=== PATIENT | female | born 1955 | race Caucasian/White ===

== ENCOUNTER 2017-11-11 01:50 | Observation (INO) | payer OTHER ==
[~2017-11-11] VITALS: Ht 157.5 cm; Wt 80.7 kg
[2017-11-11 02:24] LABS: BASO # 0.1 x10^3/uL (0.0-0.2); BASO % 1 % (0-3); EOS # 0.2 x10^3/uL (0.0-0.7); EOS % 2 % (0-3); HEMATOCRIT 40.5 % (36.0-47.0); HEMOGLOBIN 13.9 g/dL (12.0-15.5); LYMPH % 27 % (24-48); MEAN CORPUSCULAR HEMOGLOBIN 30 pg (25-35); MEAN CORPUSCULAR HGB CONC 34 g/dL (31-37); MEAN CORPUSCULAR VOLUME 88 fL (79-100); MONO # 0.7 x10^3/uL (0.0-1.1); MONO % 10 % (0-9); NEUT # 4.4 x10^3uL (1.8-7.7); NEUT % 60 % (31-73); PLATELET COUNT 229 x10^3/uL (140-400); RED BLOOD COUNT 4.59 x10^6/uL (3.50-5.40); WHITE BLOOD COUNT 7.4 x10^3/uL (4.0-11.0)
--- NOTE | 2017-11-11 02:28 | EKG ---
[facility] [address] [place] [address] Test Date: 2017-11-11 Test Time: 02:01:56 Pat Name: TOMEKA RAMSAY Department: Room: Gender: F [employer]: : 1955 Requested By: YOANNA CLEARY Order Number: [id number] Reading MD: Carlos Wheeler MD Measurements Intervals Ada Rate: 70 P: 50 UT: 174 QRS: 56 QRSD: 94 T: 81 QT: 400 QTc: 435 Interpretive Statements SINUS RHYTHM Electronically Signed On 11-11-2017 12:50:34 CDT by Carlos Wheeler MD
[2017-11-11] MEDS ORDERED: fentaNYL PF VIAL 100 MCG/2 ML VIAL IV ONE (02:30)
[2017-11-11] MEDS ORDERED: ASPIRIN CHEWABLE 81 MG TABLET. PO ONE (02:30)
--- NOTE | 2017-11-11 02:48 | PHYS DOC ---
Past Medical History Past Medical History: Other Additional Past Medical Histor: atrial tachycardia, anxiety Alcohol Use: None Drug Use: None Adult General Chief Complaint Chief Complaint: CHEST PAIN HPI HPI Patient is a 61 year old female with past medical history of atrial tachycardia , hiatal hernia, anxiety, hyperlipidemia who presents with 3 hours of chest pain. The patient notes she was watching television at home when she had the acute onset of chest pain. The patient notes that she has radiation of the pain to her upper thoracic region. The patient notes that she initially tried to ignore this pain and get ready for bed. The patient notes that she did fall asleep for a short amount of time when she was woken up from her sleep due to pain with diaphoresis and nausea. Patient denies any shortness of breath or headache. Patient notes she has never had any pain like this in the past. Review of Systems Review of Systems Constitutional: Denies fever or chills [] Eyes: Denies change in visual acuity, redness, or eye pain [] HENT: Denies nasal congestion or sore throat [] Respiratory: Denies cough or shortness of breath [] Cardiovascular: Notes chest pain denies palpitations[] GI: Denies abdominal pain, vomiting, bloody stools or diarrhea [] : Denies dysuria or hematuria [] Musculoskeletal: Notes back pain, denies joint pain [] Integument: Denies rash or skin lesions [] Neurologic: Denies headache, focal weakness or sensory changes [] Complete systems were reviewed and found to be within normal limits, except as documented in this note. Current Medications Current Medications Current Medications Medications (Trade) Dose Ordered Sig/[facility] Start Time Stop Time Status Last Admin Dose Admin Aspirin (Children'S Aspirin) 324 mg 1X ONCE 11/11/17 02:30 11/11/17 02:31 DC 11/11/17 03:05 324 MG Fentanyl Citrate (Fentanyl 2ml Vial) 50 mcg 1X ONCE 11/11/17 02:30 11/11/17 02:31 DC 11/11/17 03:08 50 MCG Allergies Allergies Allergies Coded Allergies Type Severity Reaction Last Updated Verified Estrogens Allergy Intermediate 11/11/17 Yes Penicillins Allergy Intermediate 11/11/17 Yes Tetracyclines Allergy Intermediate 11/11/17 Yes Physical Exam Physical Exam Constitutional: Well developed, well nourished, no acute distress, non-toxic appearance. [] HENT: Normocephalic, atraumatic,oropharynx moist, no oral exudates, nose normal. [] Eyes: PERRL, EOMI, conjunctiva normal, no discharge. [] Neck: Normal range of motion, no tenderness, supple, no meningismus. [] Cardiovascular:Heart rate regular rhythm, no murmur [] Lungs & Thorax: Bilateral breath sounds clear to auscultation [] Abdomen: Bowel sounds normal, soft, no tenderness. [] Skin: Warm, dry, no erythema, no rash. [] Back: No tenderness, no CVA tenderness. [] Extremities: No tenderness, normal peripheral pulses, ROM intact, no edema. [] Neurologic: Alert and oriented X 3, normal motor function, normal sensory function, no focal deficits noted. [] Psychologic: Affect normal, judgement normal, mood normal. [] Current Patient Data Vital Signs Vital Signs Date Time Temp Pulse Resp B/P (MAP) Pulse Ox O2 Delivery O2 Flow Rate FiO2 11/11/17 03:08 97 Room Air 11/11/17 03:00 72 18 144/72 (96) 11/11/17 02:11 97.4 97.4 Lab Values Laboratory Tests Test 11/11/17 02:04 White Blood Count 7.4 x10^3/uL (4.0-11.0) Red Blood Count 4.59 x10^6/uL (3.50-5.40) Hemoglobin 13.9 g/dL (12.0-15.5) Hematocrit 40.5 % (36.0-47.0) Mean Corpuscular Volume 88 fL (79-100) Mean Corpuscular Hemoglobin 30 pg (25-35) Mean Corpuscular Hemoglobin Concent 34 g/dL (31-37) Red Cell Distribution Width 13.0 % (11.5-14.5) Platelet Count 229 x10^3/uL (140-400) Neutrophils (%) (Auto) 60 % (31-73) Lymphocytes (%) (Auto) 27 % (24-48) Monocytes (%) (Auto) 10 % (0-9) H Eosinophils (%) (Auto) 2 % (0-3) Basophils (%) (Auto) 1 % (0-3) Neutrophils # (Auto) 4.4 x10^3uL (1.8-7.7) Lymphocytes # (Auto) 2.0 x10^3/uL (1.0-4.8) Monocytes # (Auto) 0.7 x10^3/uL (0.0-1.1) Eosinophils # (Auto) 0.2 x10^3/uL (0.0-0.7) Basophils # (Auto) 0.1 x10^3/uL (0.0-0.2) Sodium Level 140 mmol/L (136-145) Potassium Level 3.9 mmol/L (3.5-5.1) Chloride Level 104 mmol/L (98-107) Carbon Dioxide Level 26 mmol/L (21-32) Anion Gap 10 (6-14) Blood Urea Nitrogen 15 mg/dL (7-20) Creatinine 0.7 mg/dL (0.6-1.0) Estimated GFR (Cockcroft-Gault) 84.8 BUN/Creatinine Ratio 21 (6-20) H Glucose Level 142 mg/dL (70-99) H Calcium Level 9.3 mg/dL (8.5-10.1) Magnesium Level 2.1 mg/dL (1.8-2.4) Total Bilirubin 0.2 mg/dL (0.2-1.0) Aspartate Amino Transferase (AST) 31 U/L (15-37) Alanine Aminotransferase (ALT) 41 U/L (14-59) Alkaline Phosphatase 72 U/L (46-116) Troponin I Quantitative < 0.017 ng/mL (0.000-0.055) Total Protein 6.9 g/dL (6.4-8.2) Albumin 4.0 g/dL (3.4-5.0) Albumin/Globulin Ratio 1.4 (1.0-1.7) Triglycerides Level 184 mg/dL (0-150) H Cholesterol Level 220 mg/dL (0-200) H LDL Cholesterol, Calculated 128 mg/dL (0-100) H VLDL Cholesterol, Calculated 37 mg/dL (0-40) Non-HDL Cholesterol Calculated 165 mg/dL (0-129) H HDL Cholesterol 55 mg/dL (40-60) Cholesterol/HDL Ratio 4.0 Lipase 242 U/L (73-393) Thyroid Stimulating Hormone (TSH) 1.641 uIU/mL (0.358-3.74) Laboratory Tests 11/11/17 02:04 Laboratory Tests 11/11/17 02:04 EKG EKG Normal sinus rhythm, rate 70, QRS 94, QTC 435. T-wave inversions in V3 and V4. No acute ischemic changes noted.[] Radiology/Procedures Radiology/Procedures PROCEDURE: CHEST PA & LATERAL Chest, PA and Lateral: Technique: PA and lateral views of the chest were obtained. History: Chest pain. Comparison: None. Findings: The heart and pulmonary vasculature appear within normal limits. The lungs are clear. The pleural margins are clear. Impression: No acute chest process is seen. Electronically signed by: Fer Zamora MD (11/11/2017 4:16 AM) [facility][] Course & Med Decision Making Course & Med Decision Making 61-year-old female presenting with acute onset chest pain. Describes the pain as a pressure and has been constant. Patient describes radiation of the pain to her upper mid back. Patient notes associated diaphoresis and nausea. Initial EKG does not show any acute ischemic changes. Initial troponin negative. Chest x -ray does not show any allergy. Patient has a history of hyperlipidemia. Patient has a history of coronary artery disease and [place] in her father with initial heart attack at age 60. Patient has a heart score of 4 based on highly suspicious history +2, age +1, 1-2 risk factors +1. Plan on trending trending troponin.Patient requiring admission for further evaluation and treatment. Discussed with Dr. Ocasio who is in agreement with admission. Discussed findings and plan with patient and family, who acknowledge understanding and agreement. [] Dragon Disclaimer Dragon Disclaimer This electronic medical record was generated, in whole or in part, using a voice recognition dictation system. Departure Departure Impression: Primary Impression: Chest pain Disposition: ADMITTED INPATIENT Admitting Physician: Xie. Cheng Condition: STABLE Problem Qualifiers Primary Impression: Chest pain Chest pain type: unspecified Qualified Codes: R07.9 - Chest pain, unspecified CLEARYYOANNA Ousmane HYLTON Nov 11, 2017 02:48
[2017-11-11 02:51] LABS: CALCIUM 9.3 mg/dL (8.5-10.1); CREATININE 0.7 mg/dL (0.6-1.0); GFR 84.8; POTASSIUM 3.9 mmol/L (3.5-5.1)
[2017-11-11 02:56] LABS: ALBUMIN/GLOBULIN RATIO 1.4 (1.0-1.7); MAGNESIUM 2.1 mg/dL (1.8-2.4); TOTAL BILIRUBIN 0.2 mg/dL (0.2-1.0); TOTAL PROTEIN 6.9 g/dL (6.4-8.2)
[2017-11-11] MEDS ORDERED: fentaNYL PF VIAL 100 MCG/2 ML VIAL IV PRN (03:45)
[2017-11-11] MEDS ORDERED: ONDANSETRON PF 4 MG/2 ML VIAL. IV PRN (03:45)
--- NOTE | 2017-11-11 04:19 | RAD ---
Chest, PA and Lateral: Technique: PA and lateral views of the chest were obtained. History: Chest pain. Comparison: None. Findings: The heart and pulmonary vasculature appear within normal limits. The lungs are clear. The pleural margins are clear. Impression: No acute chest process is seen. Electronically signed by: Fer Zamora MD (11/11/2017 4:16 AM) [facility]
[2017-11-11 05:20] VITALS: BP 139/76
[2017-11-11] MEDS ORDERED: CALC-77 PO (05:47)
[2017-11-11] MEDS ORDERED: CARV12.52 PO (05:47)
[2017-11-11] MEDS ORDERED: ASPI-630 PO (05:47)
[2017-11-11] MEDS ORDERED: ALPR0.254 PO (05:47)
[2017-11-11] MEDS ORDERED: CINN500C2 PO (05:47)
[2017-11-11] MEDS ORDERED: VITA200C28 PO (05:47)
[2017-11-11] MEDS ORDERED: ASCO100020 PO (05:47)
[2017-11-11] MEDS ORDERED: FLAX10003 PO (05:47)
[2017-11-11] MEDS ORDERED: RANI150C PO (05:47)
[2017-11-11] MEDS ORDERED: RED600CA2 PO (05:47)
[2017-11-11] MEDS ORDERED: OMEG1CAP27 PO (05:47)
[2017-11-11] MEDS ORDERED: UBID100C26 PO (05:47)
[2017-11-11 07:00] VITALS: BP 123/66
--- NOTE | 2017-11-11 09:45 | PDOC2 ---
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 Reports no recent exertional SOA nor chest pain. Reports that she was having intermittent heartburn and took tums but did not relieve it. She takes zantac regularly as she has GERD. Reports that last night while watching TV she felt this pushing sensation to her lower sternum that radiated directly to her back. Denies any jaw or arm discomfort. She tried to sleep it off but woke up still with this sensation and and again at 0130 which soaked shirt and still with this pushing sensation and some lightheadedness. She was not feeling good come morning and was checking her symptoms through her phone and finally decided to come to ED. Reports no hx of CAD, VTE, falls or any recent injury. Hx of PAT but no symptoms of palpitations and takes coreg. No recent pulmonary infections, coughing spells and no recent long distance travel. PAST MEDICAL HISTORY Cardiovascular: HTN, Other (PAT) Pulmonary: Pneumonia CENTRAL NERVOUS SYSTEM: Other (No pertinent history) GI: GERD, Other (hiatal hernia) Heme/Onc: No pertinent hx Hepatobiliary: No pertinent hx Psych: Anxiety Musculoskeletal: Osteoarthritis Rheumatologic: Other (chronic fatigue syndrome) Infectious disease: Other (hx of mononucleosis) ENT: No pertinent hx Renal/: No pertinent hx Endocrine: Other (reactive hypoglycemia) Dermatology: No pertinent hx PAST SURGICAL HISTORY Past Surgical History: Other (right ganglion cyst removal) FAMILY HISTORY Family History: Coronary Artery Disease (mother) SOCIAL HISTORY Smoke: No ALCOHOL: none Drugs: None Lives: with Family CURRENT MEDICATIONS CURRENT MEDICATIONS Current Medications Medications (Trade) Dose Ordered Sig/Johanny Route PRN Reason Start Time Stop Time Status Last Admin Dose Admin Aspirin (Children'S Aspirin) 324 mg 1X ONCE PO 11/11/17 02:30 11/11/17 02:31 DC 11/11/17 03:05 Fentanyl Citrate (Fentanyl 2ml Vial) 50 mcg 1X ONCE IV 11/11/17 02:30 11/11/17 02:31 DC 11/11/17 03:08 ALLERGIES ALLERGIES: Coded Allergies: Estrogens (Verified Allergy, Intermediate, 11/11/17) Penicillins (Verified Allergy, Intermediate, 11/11/17) Tetracyclines (Verified Allergy, Intermediate, 11/11/17) ROS Review of System 14 point ROS evaluated with pertinent positives noted per HPI PHYSICAL EXAM General: Alert, Oriented X3, Cooperative, No acute distress HEENT: Atraumatic, Mucous membr. moist/pink Lungs: Normal air movement Heart: Regular rate (SR no ectopies overnight), Normal S1, Normal S2, No murmurs Abdomen: Soft, No tenderness Extremities: No cyanosis, No edema Skin: No breakdown, No significant lesion Neuro: Normal speech, Sensation intact Psych/Mental Status: Mental status NL, Mood NL MUSCULOSKELETAL: Osteoarthritic changes both hands VITALS VITALS Vital Signs Date Time Temp Pulse Resp B/P (MAP) Pulse Ox O2 Delivery O2 Flow Rate FiO2 11/11/17 07:00 97.7 65 18 123/66 (85) 95 Room Air 97.7 LABS Lab: Laboratory Tests Test 11/11/17 02:04 11/11/17 05:38 11/11/17 06:40 11/11/17 07:53 White Blood Count 7.4 x10^3/uL (4.0-11.0) Red Blood Count 4.59 x10^6/uL (3.50-5.40) Hemoglobin 13.9 g/dL (12.0-15.5) Hematocrit 40.5 % (36.0-47.0) Mean Corpuscular Volume 88 fL (79-100) Mean Corpuscular Hemoglobin 30 pg (25-35) Mean Corpuscular Hemoglobin Concent 34 g/dL (31-37) Red Cell Distribution Width 13.0 % (11.5-14.5) Platelet Count 229 x10^3/uL (140-400) Neutrophils (%) (Auto) 60 % (31-73) Lymphocytes (%) (Auto) 27 % (24-48) Monocytes (%) (Auto) 10 % (0-9) Eosinophils (%) (Auto) 2 % (0-3) Basophils (%) (Auto) 1 % (0-3) Neutrophils # (Auto) 4.4 x10^3uL (1.8-7.7) Lymphocytes # (Auto) 2.0 x10^3/uL (1.0-4.8) Monocytes # (Auto) 0.7 x10^3/uL (0.0-1.1) Eosinophils # (Auto) 0.2 x10^3/uL (0.0-0.7) Basophils # (Auto) 0.1 x10^3/uL (0.0-0.2) Sodium Level 140 mmol/L (136-145) Potassium Level 3.9 mmol/L (3.5-5.1) Chloride Level 104 mmol/L (98-107) Carbon Dioxide Level 26 mmol/L (21-32) Anion Gap 10 (6-14) Blood Urea Nitrogen 15 mg/dL (7-20) Creatinine 0.7 mg/dL (0.6-1.0) Estimated GFR (Cockcroft-Gault) 84.8 BUN/Creatinine Ratio 21 (6-20) Glucose Level 142 mg/dL (70-99) Calcium Level 9.3 mg/dL (8.5-10.1) Magnesium Level 2.1 mg/dL (1.8-2.4) Total Bilirubin 0.2 mg/dL (0.2-1.0) Aspartate Amino Transf (AST/SGOT) 31 U/L (15-37) Alanine Aminotransferase (ALT/SGPT) 41 U/L (14-59) Alkaline Phosphatase 72 U/L (46-116) Troponin I Quantitative < 0.017 ng/mL (0.000-0.055) < 0.017 ng/mL (0.000-0.055) Total Protein 6.9 g/dL (6.4-8.2) Albumin 4.0 g/dL (3.4-5.0) Albumin/Globulin Ratio 1.4 (1.0-1.7) Lipase 242 U/L (73-393) Glucose (Fingerstick) 123 mg/dL (70-99) 117 mg/dL (70-99) ASSESSMENT/PLAN ASSESSMENT/PLAN 1. Atypical chest pain: Troponin series nml. EKG SR with nonspecific ST-T wave changes 2. HLP 3. GERD: suspect exacerbation 4. Hx of PAT 5. HX of chrinic fatigue syndrome and anxiety Recommendations 1. Reweigh. TTE and MPI today 2. TSH, lipids. 3. Continue home ASA and coreg. EZ BAL MD 11/11/17 1412: CARDIAC CONSULT ASSESSMENT/PLAN ASSESSMENT/PLAN Pt. seen and examined. Agree with above BACTERIOLOGIST MEDICAL note. Non-cardiac chest pain. Normal MPI. Supportive care. Pls call with questions. PRECIOUS SMALLWOOD APRN Nov 11, 2017 09:45 EZ BAL MD Nov 11, 2017 14:12
--- NOTE | 2017-11-11 10:18 | PDOC ---
PROGRESS NOTES Chief Complaint Chief Complaint 1 year old female with past medical history of atrial tachycardia, hiatal hernia, anxiety, hyperlipidemia who presents with 3 hours of chest pain. History of Present Illness History of Present Illness ASSESSMENT/PLAN ASSESSMENT/PLAN Chest pain: Troponin series nml. HLP Vitals Vitals Vital Signs Date Time Temp Pulse Resp B/P (MAP) Pulse Ox O2 Delivery O2 Flow Rate FiO2 11/11/17 07:00 97.7 65 18 123/66 (85) 95 Room Air 97.7 Physical Exam Physical Exam Review of Systems Review of Systems Constitutional: Denies fever or chills [] Eyes: Denies change in visual acuity, redness, or eye pain [] HENT: Denies nasal congestion or sore throat [] Respiratory: Denies cough or shortness of breath [] Cardiovascular: Notes chest pain denies palpitations[] GI: Denies abdominal pain, vomiting, bloody stools or diarrhea [] : Denies dysuria or hematuria [] Musculoskeletal: Notes back pain, denies joint pain [] Integument: Denies rash or skin lesions [] Neurologic: Denies headache, focal weakness or sensory changes [] 14 pt systems were reviewed and found to be within normal limits, except as documented Physical Exam Physical Exam Constitutional: Well developed, well nourished, no acute distress, non-toxic appearance. [] HENT: Normocephalic, atraumatic,oropharynx moist, no oral exudates, nose normal. [] Eyes: PERRL, EOMI, conjunctiva normal, no discharge. [] Neck: Normal range of motion, no tenderness, supple, no meningismus. [] Cardiovascular:Heart rate regular rhythm, no murmur [] Lungs & Thorax: Bilateral breath sounds clear to auscultation [] Abdomen: Bowel sounds normal, soft, no tenderness. [] Skin: Warm, dry, no erythema, no rash. [] Back: No tenderness, no CVA tenderness. [] Extremities: No tenderness, normal peripheral pulses, ROM intact, no edema. [] Neurologic: Alert and oriented X 3, normal motor function, normal sensory function, no focal deficits noted. [] Psychologic: Affect normal, judgement normal, mood normal. [] Labs LABS Laboratory Tests Test 11/11/17 02:04 11/11/17 05:38 11/11/17 06:40 11/11/17 07:53 White Blood Count 7.4 x10^3/uL (4.0-11.0) Red Blood Count 4.59 x10^6/uL (3.50-5.40) Hemoglobin 13.9 g/dL (12.0-15.5) Hematocrit 40.5 % (36.0-47.0) Mean Corpuscular Volume 88 fL (79-100) Mean Corpuscular Hemoglobin 30 pg (25-35) Mean Corpuscular Hemoglobin Concent 34 g/dL (31-37) Red Cell Distribution Width 13.0 % (11.5-14.5) Platelet Count 229 x10^3/uL (140-400) Neutrophils (%) (Auto) 60 % (31-73) Lymphocytes (%) (Auto) 27 % (24-48) Monocytes (%) (Auto) 10 % (0-9) Eosinophils (%) (Auto) 2 % (0-3) Basophils (%) (Auto) 1 % (0-3) Neutrophils # (Auto) 4.4 x10^3uL (1.8-7.7) Lymphocytes # (Auto) 2.0 x10^3/uL (1.0-4.8) Monocytes # (Auto) 0.7 x10^3/uL (0.0-1.1) Eosinophils # (Auto) 0.2 x10^3/uL (0.0-0.7) Basophils # (Auto) 0.1 x10^3/uL (0.0-0.2) Sodium Level 140 mmol/L (136-145) Potassium Level 3.9 mmol/L (3.5-5.1) Chloride Level 104 mmol/L (98-107) Carbon Dioxide Level 26 mmol/L (21-32) Anion Gap 10 (6-14) Blood Urea Nitrogen 15 mg/dL (7-20) Creatinine 0.7 mg/dL (0.6-1.0) Estimated GFR (Cockcroft-Gault) 84.8 BUN/Creatinine Ratio 21 (6-20) Glucose Level 142 mg/dL (70-99) Calcium Level 9.3 mg/dL (8.5-10.1) Magnesium Level 2.1 mg/dL (1.8-2.4) Total Bilirubin 0.2 mg/dL (0.2-1.0) Aspartate Amino Transf (AST/SGOT) 31 U/L (15-37) Alanine Aminotransferase (ALT/SGPT) 41 U/L (14-59) Alkaline Phosphatase 72 U/L (46-116) Troponin I Quantitative < 0.017 ng/mL (0.000-0.055) < 0.017 ng/mL (0.000-0.055) Total Protein 6.9 g/dL (6.4-8.2) Albumin 4.0 g/dL (3.4-5.0) Albumin/Globulin Ratio 1.4 (1.0-1.7) Triglycerides Level 184 mg/dL (0-150) Cholesterol Level 220 mg/dL (0-200) LDL Cholesterol, Calculated 128 mg/dL (0-100) VLDL Cholesterol, Calculated 37 mg/dL (0-40) Non-HDL Cholesterol Calculated 165 mg/dL (0-129) HDL Cholesterol 55 mg/dL (40-60) Cholesterol/HDL Ratio 4.0 Lipase 242 U/L (73-393) Glucose (Fingerstick) 123 mg/dL (70-99) 117 mg/dL (70-99) Comment Review of Relevant I have reviewed the following items berenice (where applicable) has been applied. Labs Laboratory Tests Test 11/11/17 02:04 11/11/17 05:38 11/11/17 06:40 11/11/17 07:53 White Blood Count 7.4 x10^3/uL (4.0-11.0) Red Blood Count 4.59 x10^6/uL (3.50-5.40) Hemoglobin 13.9 g/dL (12.0-15.5) Hematocrit 40.5 % (36.0-47.0) Mean Corpuscular Volume 88 fL (79-100) Mean Corpuscular Hemoglobin 30 pg (25-35) Mean Corpuscular Hemoglobin Concent 34 g/dL (31-37) Red Cell Distribution Width 13.0 % (11.5-14.5) Platelet Count 229 x10^3/uL (140-400) Neutrophils (%) (Auto) 60 % (31-73) Lymphocytes (%) (Auto) 27 % (24-48) Monocytes (%) (Auto) 10 % (0-9) Eosinophils (%) (Auto) 2 % (0-3) Basophils (%) (Auto) 1 % (0-3) Neutrophils # (Auto) 4.4 x10^3uL (1.8-7.7) Lymphocytes # (Auto) 2.0 x10^3/uL (1.0-4.8) Monocytes # (Auto) 0.7 x10^3/uL (0.0-1.1) Eosinophils # (Auto) 0.2 x10^3/uL (0.0-0.7) Basophils # (Auto) 0.1 x10^3/uL (0.0-0.2) Sodium Level 140 mmol/L (136-145) Potassium Level 3.9 mmol/L (3.5-5.1) Chloride Level 104 mmol/L (98-107) Carbon Dioxide Level 26 mmol/L (21-32) Anion Gap 10 (6-14) Blood Urea Nitrogen 15 mg/dL (7-20) Creatinine 0.7 mg/dL (0.6-1.0) Estimated GFR (Cockcroft-Gault) 84.8 BUN/Creatinine Ratio 21 (6-20) Glucose Level 142 mg/dL (70-99) Calcium Level 9.3 mg/dL (8.5-10.1) Magnesium Level 2.1 mg/dL (1.8-2.4) Total Bilirubin 0.2 mg/dL (0.2-1.0) Aspartate Amino Transf (AST/SGOT) 31 U/L (15-37) Alanine Aminotransferase (ALT/SGPT) 41 U/L (14-59) Alkaline Phosphatase 72 U/L (46-116) Troponin I Quantitative < 0.017 ng/mL (0.000-0.055) < 0.017 ng/mL (0.000-0.055) Total Protein 6.9 g/dL (6.4-8.2) Albumin 4.0 g/dL (3.4-5.0) Albumin/Globulin Ratio 1.4 (1.0-1.7) Triglycerides Level 184 mg/dL (0-150) Cholesterol Level 220 mg/dL (0-200) LDL Cholesterol, Calculated 128 mg/dL (0-100) VLDL Cholesterol, Calculated 37 mg/dL (0-40) Non-HDL Cholesterol Calculated 165 mg/dL (0-129) HDL Cholesterol 55 mg/dL (40-60) Cholesterol/HDL Ratio 4.0 Lipase 242 U/L (73-393) Glucose (Fingerstick) 123 mg/dL (70-99) 117 mg/dL (70-99) Laboratory Tests Test 11/11/17 02:04 11/11/17 05:38 11/11/17 06:40 11/11/17 07:53 White Blood Count 7.4 x10^3/uL (4.0-11.0) Red Blood Count 4.59 x10^6/uL (3.50-5.40) Hemoglobin 13.9 g/dL (12.0-15.5) Hematocrit 40.5 % (36.0-47.0) Mean Corpuscular Volume 88 fL (79-100) Mean Corpuscular Hemoglobin 30 pg (25-35) Mean Corpuscular Hemoglobin Concent 34 g/dL (31-37) Red Cell Distribution Width 13.0 % (11.5-14.5) Platelet Count 229 x10^3/uL (140-400) Neutrophils (%) (Auto) 60 % (31-73) Lymphocytes (%) (Auto) 27 % (24-48) Monocytes (%) (Auto) 10 % (0-9) Eosinophils (%) (Auto) 2 % (0-3) Basophils (%) (Auto) 1 % (0-3) Neutrophils # (Auto) 4.4 x10^3uL (1.8-7.7) Lymphocytes # (Auto) 2.0 x10^3/uL (1.0-4.8) Monocytes # (Auto) 0.7 x10^3/uL (0.0-1.1) Eosinophils # (Auto) 0.2 x10^3/uL (0.0-0.7) Basophils # (Auto) 0.1 x10^3/uL (0.0-0.2) Sodium Level 140 mmol/L (136-145) Potassium Level 3.9 mmol/L (3.5-5.1) Chloride Level 104 mmol/L (98-107) Carbon Dioxide Level 26 mmol/L (21-32) Anion Gap 10 (6-14) Blood Urea Nitrogen 15 mg/dL (7-20) Creatinine 0.7 mg/dL (0.6-1.0) Estimated GFR (Cockcroft-Gault) 84.8 BUN/Creatinine Ratio 21 (6-20) Glucose Level 142 mg/dL (70-99) Calcium Level 9.3 mg/dL (8.5-10.1) Magnesium Level 2.1 mg/dL (1.8-2.4) Total Bilirubin 0.2 mg/dL (0.2-1.0) Aspartate Amino Transf (AST/SGOT) 31 U/L (15-37) Alanine Aminotransferase (ALT/SGPT) 41 U/L (14-59) Alkaline Phosphatase 72 U/L (46-116) Troponin I Quantitative < 0.017 ng/mL (0.000-0.055) < 0.017 ng/mL (0.000-0.055) Total Protein 6.9 g/dL (6.4-8.2) Albumin 4.0 g/dL (3.4-5.0) Albumin/Globulin Ratio 1.4 (1.0-1.7) Triglycerides Level 184 mg/dL (0-150) Cholesterol Level 220 mg/dL (0-200) LDL Cholesterol, Calculated 128 mg/dL (0-100) VLDL Cholesterol, Calculated 37 mg/dL (0-40) Non-HDL Cholesterol Calculated 165 mg/dL (0-129) HDL Cholesterol 55 mg/dL (40-60) Cholesterol/HDL Ratio 4.0 Lipase 242 U/L (73-393) Glucose (Fingerstick) 123 mg/dL (70-99) 117 mg/dL (70-99) Medications Current Medications Aspirin (Children'S Aspirin) 324 mg 1X ONCE PO Last administered on 11/11/17at 03:05; Start 11/11/17 at 02:30; Stop 11/11/17 at 02:31; Status DC Fentanyl Citrate (Fentanyl 2ml Vial) 50 mcg 1X ONCE IV Last administered on at 03:08; Start 11/11/17 at 02:30; Stop 11/11/17 at 02:31; Status DC Ondansetron HCl (Zofran) 4 mg PRN Q8HRS PRN IV NAUSEA/VOMITING 1ST CHOICE; Start 11/11/17 at 03:45; Stop 11/12/17 at 03:44 Fentanyl Citrate (Fentanyl 2ml Vial) 50 mcg PRN Q2HR PRN IV SEVERE PAIN; Start 11/11/17 at 03:45; Stop 11/12/17 at 03:44 Active Scripts Active Reported Ranitidine Hcl 150 Mg Capsule 1 Cap PO BID Red Yeast Rice 600 Mg Capsule 600 Mg PO Flax Oil (Flaxseed Oil) 1,000 Mg Capsule 1,000 Mg PO BID Fish Oil 1,000 Mg Softgel ([place]-3 Fatty Acids/Fish Oil) 1 Each Capsule 1 Each PO BID Vitamin E (Vitamin E (Dl,Tocopheryl Acet)) 200 Unit Capsule 400 Unit PO Calcium + D3 Er Tablet (Calcium Carb & Cit/Vitamin D3) 1 Each Tablet.er 1 Each PO Coq-10 (Ubidecarenone) 100 Mg Capsule 200 Mg PO BID Cinnamon (Cinnamon Bark) 500 Mg Capsule 1,000 Mg PO BID Vitamin C (Ascorbic Acid) 1,000 Mg Tablet.er 1,000 Mg PO Aspirin 81 Mg Tab.chew 1 Tab PO DAILY Carvedilol 12.5 Mg Tablet 1 Tab PO BID Alprazolam 0.25 Mg Tablet 1 Tab PO BID PRN Vitals/I & O Vital Sign - Last 24 Hours 11/11/17 11/11/17 11/11/17 11/11/17 02:11 03:00 03:08 04:00 Temp 97.4 97.4 Pulse 66 72 78 Resp B/P (MAP) 154/71 (98) 144/72 (96) 142/76 (98) Pulse Ox 99 97 97 100 O2 Delivery Room Air Room Air Room Air 11/11/17 11/11/17 11/11/17 11/11/17 05:00 05:20 05:43 07:00 Temp 97.7 97.7 97.7 97.7 Pulse 72 64 65 Resp 18 B/P (MAP) 138/97 (111) 139/76 (97) 123/66 (85) Pulse Ox 99 91 95 O2 Delivery Room Air Room Air Room Air Room Air Intake and Output 11/10/17 11/10/17 11/11/17 15:00 23:00 07:00 Output Total 400 ml Balance -400 ml ZURDO SOARES MD Nov 11, 2017 10:18
--- NOTE | 2017-11-11 10:23 | PDOC1 ---
History and Physical Date of Admission Date of Admission DATE: 11/11/17 TIME: 10:22 Identification/Chief Complaint Chief Complaint admitted for complains of chest pain. no recent exertional SOA or chest pain. having intermittent heartburn Past Medical History Cardiovascular: HTN, Other (PAT) Pulmonary: Pneumonia CENTRAL NERVOUS SYSTEM: Other (No pertinent history) GI: GERD, Other (hiatal hernia) Heme/Onc: No pertinent hx Hepatobiliary: No pertinent hx Psych: Anxiety Musculoskeletal: Osteoarthritis Rheumatologic: Other (chronic fatigue syndrome) Infectious disease: Other (hx of mononucleosis) ENT: No pertinent hx Renal/: No pertinent hx Endocrine: Other (reactive hypoglycemia) Dermatology: No pertinent hx Past Surgical History Past Surgical History: Other (right ganglion cyst removal) Family History Family History Past Medical History Cardiovascular: HTN, Other (PAT) Pulmonary: Pneumonia CENTRAL NERVOUS SYSTEM: Other (No pertinent history) GI: GERD, Other (hiatal hernia) Heme/Onc: No pertinent hx Hepatobiliary: No pertinent hx Psych: Anxiety Musculoskeletal: Osteoarthritis Rheumatologic: Other (chronic fatigue syndrome) Infectious disease: Other (hx of mononucleosis) ENT: No pertinent hx Renal/: No pertinent hx Endocrine: Other (reactive hypoglycemia) Dermatology: No pertinent hx Past Surgical History Past Surgical History: Other (right ganglion cyst removal) Family History Family History: Coronary Artery Disease (mother) Social History Smoke: No ALCOHOL: none Drugs: None Family History: Coronary Artery Disease (mother) Social History Smoke: No ALCOHOL: none Drugs: None Current Medications Current Medications Current Medications Aspirin (Children'S Aspirin) 324 mg 1X ONCE PO Last administered on 11/11/17at 03:05; Start 11/11/17 at 02:30; Stop 11/11/17 at 02:31; Status DC Fentanyl Citrate (Fentanyl 2ml Vial) 50 mcg 1X ONCE IV Last administered on at 03:08; Start 11/11/17 at 02:30; Stop 11/11/17 at 02:31; Status DC Ondansetron HCl (Zofran) 4 mg PRN Q8HRS PRN IV NAUSEA/VOMITING 1ST CHOICE; Start 11/11/17 at 03:45; Stop 11/12/17 at 03:44 Fentanyl Citrate (Fentanyl 2ml Vial) 50 mcg PRN Q2HR PRN IV SEVERE PAIN; Start 11/11/17 at 03:45; Stop 11/12/17 at 03:44 Active Scripts Active Reported Ranitidine Hcl 150 Mg Capsule 1 Cap PO BID Red Yeast Rice 600 Mg Capsule 600 Mg PO Flax Oil (Flaxseed Oil) 1,000 Mg Capsule 1,000 Mg PO BID Fish Oil 1,000 Mg Softgel ([place]-3 Fatty Acids/Fish Oil) 1 Each Capsule 1 Each PO BID Vitamin E (Vitamin E (Dl,Tocopheryl Acet)) 200 Unit Capsule 400 Unit PO Calcium + D3 Er Tablet (Calcium Carb & Cit/Vitamin D3) 1 Each Tablet.er 1 Each PO Coq-10 (Ubidecarenone) 100 Mg Capsule 200 Mg PO BID Cinnamon (Cinnamon Bark) 500 Mg Capsule 1,000 Mg PO BID Vitamin C (Ascorbic Acid) 1,000 Mg Tablet.er 1,000 Mg PO Aspirin 81 Mg Tab.chew 1 Tab PO DAILY Carvedilol 12.5 Mg Tablet 1 Tab PO BID Alprazolam 0.25 Mg Tablet 1 Tab PO BID PRN Allergies Allergies: Coded Allergies: Estrogens (Verified Allergy, Intermediate, 11/11/17) Penicillins (Verified Allergy, Intermediate, 11/11/17) Tetracyclines (Verified Allergy, Intermediate, 11/11/17) Physical Exam Physical Exam Physical Exam Physical Exam Review of Systems Review of Systems Constitutional: Denies fever or chills [] Eyes: Denies change in visual acuity, redness, or eye pain [] HENT: Denies nasal congestion or sore throat [] Respiratory: Denies cough or shortness of breath [] Cardiovascular: Notes chest pain denies palpitations[] GI: Denies abdominal pain, vomiting, bloody stools or diarrhea [] : Denies dysuria or hematuria [] Musculoskeletal: Notes back pain, denies joint pain [] Integument: Denies rash or skin lesions [] Neurologic: Denies headache, focal weakness or sensory changes [] 14 pt systems were reviewed and found to be within normal limits, except as documented Physical Exam Physical Exam Constitutional: Well developed, well nourished, no acute distress, non-toxic appearance. [] HENT: Normocephalic, atraumatic,oropharynx moist, no oral exudates, nose normal. [] Eyes: PERRL, EOMI, conjunctiva normal, no discharge. [] Neck: Normal range of motion, no tenderness, supple, no meningismus. [] Cardiovascular:Heart rate regular rhythm, no murmur [] Lungs & Thorax: Bilateral breath sounds clear to auscultation [] Abdomen: Bowel sounds normal, soft, no tenderness. [] Skin: Warm, dry, no erythema, no rash. [] Back: No tenderness, no CVA tenderness. [] Extremities: No tenderness, normal peripheral pulses, ROM intact, no edema. [] Neurologic: Alert and oriented X 3, normal motor function, normal sensory function, no focal deficits noted. [] Psychologic: Affect normal, judgement normal, mood normal. [] Labs General: Oriented X3, Cooperative Neuro: Strength at 5/5 X4 ext, Cranial nerves 3-12 NL Psych/Mental Status: Mental status NL, Mood NL Vitals Vitals Vital Signs Date Time Temp Pulse Resp B/P (MAP) Pulse Ox O2 Delivery O2 Flow Rate FiO2 11/11/17 07:00 97.7 65 18 123/66 (85) 95 Room Air 97.7 Labs Labs Laboratory Tests Test 11/11/17 02:04 11/11/17 05:38 11/11/17 06:40 11/11/17 07:53 White Blood Count 7.4 x10^3/uL (4.0-11.0) Red Blood Count 4.59 x10^6/uL (3.50-5.40) Hemoglobin 13.9 g/dL (12.0-15.5) Hematocrit 40.5 % (36.0-47.0) Mean Corpuscular Volume 88 fL (79-100) Mean Corpuscular Hemoglobin 30 pg (25-35) Mean Corpuscular Hemoglobin Concent 34 g/dL (31-37) Red Cell Distribution Width 13.0 % (11.5-14.5) Platelet Count 229 x10^3/uL (140-400) Neutrophils (%) (Auto) 60 % (31-73) Lymphocytes (%) (Auto) 27 % (24-48) Monocytes (%) (Auto) 10 % (0-9) Eosinophils (%) (Auto) 2 % (0-3) Basophils (%) (Auto) 1 % (0-3) Neutrophils # (Auto) 4.4 x10^3uL (1.8-7.7) Lymphocytes # (Auto) 2.0 x10^3/uL (1.0-4.8) Monocytes # (Auto) 0.7 x10^3/uL (0.0-1.1) Eosinophils # (Auto) 0.2 x10^3/uL (0.0-0.7) Basophils # (Auto) 0.1 x10^3/uL (0.0-0.2) Sodium Level 140 mmol/L (136-145) Potassium Level 3.9 mmol/L (3.5-5.1) Chloride Level 104 mmol/L (98-107) Carbon Dioxide Level 26 mmol/L (21-32) Anion Gap 10 (6-14) Blood Urea Nitrogen 15 mg/dL (7-20) Creatinine 0.7 mg/dL (0.6-1.0) Estimated GFR (Cockcroft-Gault) 84.8 BUN/Creatinine Ratio 21 (6-20) Glucose Level 142 mg/dL (70-99) Calcium Level 9.3 mg/dL (8.5-10.1) Magnesium Level 2.1 mg/dL (1.8-2.4) Total Bilirubin 0.2 mg/dL (0.2-1.0) Aspartate Amino Transf (AST/SGOT) 31 U/L (15-37) Alanine Aminotransferase (ALT/SGPT) 41 U/L (14-59) Alkaline Phosphatase 72 U/L (46-116) Troponin I Quantitative < 0.017 ng/mL (0.000-0.055) < 0.017 ng/mL (0.000-0.055) Total Protein 6.9 g/dL (6.4-8.2) Albumin 4.0 g/dL (3.4-5.0) Albumin/Globulin Ratio 1.4 (1.0-1.7) Triglycerides Level 184 mg/dL (0-150) Cholesterol Level 220 mg/dL (0-200) LDL Cholesterol, Calculated 128 mg/dL (0-100) VLDL Cholesterol, Calculated 37 mg/dL (0-40) Non-HDL Cholesterol Calculated 165 mg/dL (0-129) HDL Cholesterol 55 mg/dL (40-60) Cholesterol/HDL Ratio 4.0 Lipase 242 U/L (73-393) Thyroid Stimulating Hormone (TSH) 1.641 uIU/mL (0.358-3.74) Glucose (Fingerstick) 123 mg/dL (70-99) 117 mg/dL (70-99) Laboratory Tests Test 11/11/17 02:04 11/11/17 05:38 11/11/17 06:40 11/11/17 07:53 White Blood Count 7.4 x10^3/uL (4.0-11.0) Red Blood Count 4.59 x10^6/uL (3.50-5.40) Hemoglobin 13.9 g/dL (12.0-15.5) Hematocrit 40.5 % (36.0-47.0) Mean Corpuscular Volume 88 fL (79-100) Mean Corpuscular Hemoglobin 30 pg (25-35) Mean Corpuscular Hemoglobin Concent 34 g/dL (31-37) Red Cell Distribution Width 13.0 % (11.5-14.5) Platelet Count 229 x10^3/uL (140-400) Neutrophils (%) (Auto) 60 % (31-73) Lymphocytes (%) (Auto) 27 % (24-48) Monocytes (%) (Auto) 10 % (0-9) Eosinophils (%) (Auto) 2 % (0-3) Basophils (%) (Auto) 1 % (0-3) Neutrophils # (Auto) 4.4 x10^3uL (1.8-7.7) Lymphocytes # (Auto) 2.0 x10^3/uL (1.0-4.8) Monocytes # (Auto) 0.7 x10^3/uL (0.0-1.1) Eosinophils # (Auto) 0.2 x10^3/uL (0.0-0.7) Basophils # (Auto) 0.1 x10^3/uL (0.0-0.2) Sodium Level 140 mmol/L (136-145) Potassium Level 3.9 mmol/L (3.5-5.1) Chloride Level 104 mmol/L (98-107) Carbon Dioxide Level 26 mmol/L (21-32) Anion Gap 10 (6-14) Blood Urea Nitrogen 15 mg/dL (7-20) Creatinine 0.7 mg/dL (0.6-1.0) Estimated GFR (Cockcroft-Gault) 84.8 BUN/Creatinine Ratio 21 (6-20) Glucose Level 142 mg/dL (70-99) Calcium Level 9.3 mg/dL (8.5-10.1) Magnesium Level 2.1 mg/dL (1.8-2.4) Total Bilirubin 0.2 mg/dL (0.2-1.0) Aspartate Amino Transf (AST/SGOT) 31 U/L (15-37) Alanine Aminotransferase (ALT/SGPT) 41 U/L (14-59) Alkaline Phosphatase 72 U/L (46-116) Troponin I Quantitative < 0.017 ng/mL (0.000-0.055) < 0.017 ng/mL (0.000-0.055) Total Protein 6.9 g/dL (6.4-8.2) Albumin 4.0 g/dL (3.4-5.0) Albumin/Globulin Ratio 1.4 (1.0-1.7) Triglycerides Level 184 mg/dL (0-150) Cholesterol Level 220 mg/dL (0-200) LDL Cholesterol, Calculated 128 mg/dL (0-100) VLDL Cholesterol, Calculated 37 mg/dL (0-40) Non-HDL Cholesterol Calculated 165 mg/dL (0-129) HDL Cholesterol 55 mg/dL (40-60) Cholesterol/HDL Ratio 4.0 Lipase 242 U/L (73-393) Thyroid Stimulating Hormone (TSH) 1.641 uIU/mL (0.358-3.74) Glucose (Fingerstick) 123 mg/dL (70-99) 117 mg/dL (70-99) VTE Prophylaxis Ordered VTE Prophylaxis Devices: Yes VTE Pharmacological Prophylaxi: Yes Assessment/Plan Assessment/Plan IMPRESSION CHEST PAIN TTE and MPI today TELE SERIAL TROPONIN I OBSERVATION STATUS ZURDO SOARES MD Nov 11, 2017 10:23
[2017-11-11 11:00] VITALS: BP 124/68
[2017-11-11] MEDS ORDERED: REGADENOSON 0.4 MG/5 ML DISP.SYRIN. IV ONE (11:45)
--- NOTE | 2017-11-11 14:10 | RAD ---
MR#: [id number] Date of Study: 11/11/2017 Ordering Physician: PRECIOUS SMALLWOOD, Referring Physician: OMAIRA MTZ Tech: RT Sudhakar Alexander) (N) APPROVED REPORT Test Type: Pharmacological Stress Nurse/Tech: Melissa Massey RN Test Indications: Chest/back pain Cardiac History: No known cardiac Medications: See Electronic Medical Record Medical History: See Electronic Medical Record Resting ECG: SR Resting Heart Rate: 63 bpm Resting Blood Pressure: 132/82mmHg Pretest Chest Pain: No chest pain Nurse/Tech Notes S1,S2 and lungs are clear to auscultation. Consent: The procedure was explained to the patient in lay terms. Informed consent was witnessed. Enrike eout was entered into [employer]. History and Stress Test performed by RT Benjamin (R) (N) Pharm. Details Pharmacologic stress testing was performed using 0.4mg per 5ml of regadenoson given intravenously ove r 7-10 seconds. Stress Symptoms Dyspnea,Dizziness POST EXERCISE Reason for Termination: Infusion complete Target HR: Yes Max HR: 137 bpm Max Blood Pressure: 155/80mmHg Blood Pressure response to exercise: Normal blood pressure response during stress. Heart Rate response to exercise: WNL Chest Pain: No. Arrhythmia: No. ST Change: No. INTERPRETATION Stress EKG Conclusion: No significant ischemic changes with vasodilator infusion. Imaging Protocol IMAGE PROTOCOL: Rest Tc-99m/stress Tc-99m 1 day Rest: Stress: Viability: Radiopharm.Tc99m [id number] Sestamibi Dose10.6mCi 33.6mCi Duration 15min. 10min. Img Date 11/11/2017 11/11/2017 Inj-Img [id number]. 45min. Rest Admin Site:IV - Left AntecubitalAdministrator:RT Benjamin (Ousmane)(N) Stress Admin Site: IV - Left AntecubitalAdministrator: RT Benjamin (Ousmane)(N) STRESS DATA End Diast. Vol.59.0mlAv. Heart Rate75.0bpm End Syst. Vol.4.0mlCO Index BSA0.0L/min Myocardial Kntk892.0gEject. Nzjwqmkv81.0% Stress Rates Pk. Fill Rate3.00EDV/secLVtime Pk. Fill 209.52msec Pk. Empty Rate4.17ESV/secLVtime Pk. Uxujc382.17msec 1/3 Pk. Fill1.90EDV/sec Stress Scores Regional WT0.00Summed WT0.00 Regional WM0.00Summed WM0.00 The rest and stress images show normal perfusion, normal contraction and thickening. LV Perf. Quant 17 Seg. SSS1.00 17 Seg. SRS0.00 17 Seg. SDS1.00 Stress Defect Extent (% LAD)0.00Rest Defect Extent (% LAD)0.00Rev. Defect Extent (% LAD)0.00 Stress Defect Extent (% LCX) 0.00Rest Defect Extent (% LCX)0.00Rev. Defect Extent (% LCX)0.00 Stress Defect Extent (% RCA)0.00Rest Defect Extent (% RCA)0.00Rev. Defect Extent (% RCA)0.00 Stress Defect Extent (% SARAH)0.00Rest Defect Extent (% SARAH)0.00Rev. Defect Extent (% SARAH)0.00 Other Information Quality:Good Risk Assessment: Low Risk Conclusion 1. No evidence of EKG changes with stress testing. 2. Normal perfusion at stress/rest. 3. Low risk study. 4. EF > 60%. Signed by : Carlos Wheeler, Electronically Approved : 11/11/2017 14:09:16
[2017-11-11] MEDS ORDERED: ALPRAZolam 0.25 MG TABLET PO PRN (15:30)
--- NOTE | 2017-11-11 15:56 | PDOC3 ---
Discharge Summary Date of Admission: Nov 11, 2017 Date of Discharge: Nov 11, 2017 Follow-Up: 3-5 days Admitting Diagnosis comment: discharge diagnosis Assessment/Plan IMPRESSION CHEST PAIN TTE and MPI today ok TELE SERIAL TROPONIN I OBSERVATION STATUS STRESS DATA End Diast. Vol. 59.0ml Av. Heart Rate 75.0bpm End Syst. Vol. 4.0ml CO Index BSA 0.0L/min Myocardial Mass 102.0g Eject. Fraction 93.0% Stress Rates Pk. Fill Rate 3.00EDV/sec LVtime Pk. Fill 209.52msec Pk. Empty Rate 4.17ESV/sec LVtime Pk. Eject 124.17msec 02/26 Pk. Fill 1.90EDV/sec Stress Scores Regional WT 0.00 Summed WT 0.00 Regional WM 0.00 Summed WM 0.00 The rest and stress images show normal perfusion, normal contraction and thickening. LV Perf. Quant 17 Seg. SSS 1.00 17 Seg. SRS 0.00 17 Seg. SDS 1.00 Stress Defect Extent (% LAD) 0.00 Rest Defect Extent (% LAD) 0.00 Rev. Defect Extent (% LAD) 0.00 Stress Defect Extent (% LCX) 0.00 Rest Defect Extent (% LCX) 0.00 Rev. Defect Extent (% LCX) 0.00 Stress Defect Extent (% RCA) 0.00 Rest Defect Extent (% RCA) 0.00 Rev. Defect Extent (% RCA) 0.00 Stress Defect Extent (% SARAH) 0.00 Rest Defect Extent (% SARAH) 0.00 Rev. Defect Extent (% SARAH) 0.00 Other Information Quality:Good Risk Assessment: Low Risk Conclusion 1. No evidence of EKG changes with stress testing. 2. Normal perfusion at stress/rest. 3. Low risk study. 4. EF > 60%. Signed by : Ez Bal, Electronically Approved : 11/11/2017 14:09:16 DICTATED and SIGNED BY: EZ BAL MD DATE: 11/11/17 1409 Brief Hospital Course Ms. Ching is a 61 old [sex] who presented with [ chest pain] Review of Systems Review of Systems Constitutional: Denies fever or chills [] Eyes: Denies change in visual acuity, redness, or eye pain [] HENT: Denies nasal congestion or sore throat [] Respiratory: Denies cough or shortness of breath [] Cardiovascular: Notes chest pain denies palpitations[] GI: Denies abdominal pain, vomiting, bloody stools or diarrhea [] : Denies dysuria or hematuria [] Musculoskeletal: Notes back pain, denies joint pain [] Integument: Denies rash or skin lesions [] Neurologic: Denies headache, focal weakness or sensory changes [] 14 pt systems were reviewed and found to be within normal limits, except as documented Physical Exam Physical Exam Constitutional: Well developed, well nourished, no acute distress, non-toxic appearance. [] HENT: Normocephalic, atraumatic,oropharynx moist, no oral exudates, nose normal. [] Eyes: PERRL, EOMI, conjunctiva normal, no discharge. [] Neck: Normal range of motion, no tenderness, supple, no meningismus. [] Cardiovascular:Heart rate regular rhythm, no murmur [] Lungs & Thorax: Bilateral breath sounds clear to auscultation [] Abdomen: Bowel sounds normal, soft, no tenderness. [] Skin: Warm, dry, no erythema, no rash. [] Back: No tenderness, no CVA tenderness. [] Extremities: No tenderness, normal peripheral pulses, ROM intact, no edema. [] Neurologic: Alert and oriented X 3, normal motor function, normal sensory function, no focal deficits noted. [] Psychologic: Affect normal, judgement normal, mood normal. [] Labs General: Oriented X3, Cooperative Neuro: Strength at 5/5 X4 ext, Cranial nerves 3-12 NL Psych/Mental Status: Mental status NL, Mood NL CONDITION AT DISCHARGE: Improved Discharge Medications Current Medications Aspirin (Children'S Aspirin) 324 mg 1X ONCE PO Last administered on 11/11/17at 03:05; Start 11/11/17 at 02:30; Stop 11/11/17 at 02:31; Status DC Fentanyl Citrate (Fentanyl 2ml Vial) 50 mcg 1X ONCE IV Last administered on at 03:08; Start 11/11/17 at 02:30; Stop 11/11/17 at 02:31; Status DC Ondansetron HCl (Zofran) 4 mg PRN Q8HRS PRN IV NAUSEA/VOMITING 1ST CHOICE; Start 11/11/17 at 03:45; Stop 11/12/17 at 03:44 Fentanyl Citrate (Fentanyl 2ml Vial) 50 mcg PRN Q2HR PRN IV SEVERE PAIN; Start 11/11/17 at 03:45; Stop 11/12/17 at 03:44 Regadenoson (Lexiscan) 0.4 mg 1X ONCE IV Last administered on 11/11/17at 12:48 ; Start 11/11/17 at 11:45; Stop 11/11/17 at 11:46; Status DC Alprazolam (Xanax) 0.25 mg PRN BID PRN PO ANXIETY / AGITATION; Start 11/11/17 at 15:30 Aspirin (Children'S Aspirin) 81 mg DAILY PO ; Start 11/12/17 at 09:00 Carvedilol (Coreg) 12.5 mg BIDWMEALS PO ; Start 11/11/17 at 17:00 Fish Oil (Fish Oil) 1,000 mg BID PO ; Start 11/11/17 at 21:00 Famotidine (Pepcid) 20 mg BID PO ; Start 11/11/17 at 21:00 Non-Formulary Medication (Ubidecarenone (Coq-10)) 200 mg BID PO ; Start at 21:00; Status UNV Ascorbic Acid (Vitamin C) 500 mg DAILY PO ; Start 11/12/17 at 09:00 Calcium/Vitamin D (Oscal D 500mg/ 200uts) 1 tab BIDWMEALS PO ; Start 11/11/17 at 17:00 Active Scripts Active Reported Ranitidine Hcl 150 Mg Capsule 1 Cap PO BID Red Yeast Rice 600 Mg Capsule 600 Mg PO Flax Oil (Flaxseed Oil) 1,000 Mg Capsule 1,000 Mg PO BID Fish Oil 1,000 Mg Softgel ([place]-3 Fatty Acids/Fish Oil) 1 Each Capsule 1 Each PO BID Vitamin E (Vitamin E (Dl,Tocopheryl Acet)) 200 Unit Capsule 400 Unit PO Calcium + D3 Er Tablet (Calcium Carb & Cit/Vitamin D3) 1 Each Tablet.er 1 Each PO Coq-10 (Ubidecarenone) 100 Mg Capsule 200 Mg PO BID Cinnamon (Cinnamon Bark) 500 Mg Capsule 1,000 Mg PO BID Vitamin C (Ascorbic Acid) 1,000 Mg Tablet.er 1,000 Mg PO Aspirin 81 Mg Tab.chew 1 Tab PO DAILY Carvedilol 12.5 Mg Tablet 1 Tab PO BID Alprazolam 0.25 Mg Tablet 1 Tab PO BID PRN Vital Signs Vital Signs Date Time Temp Pulse Resp B/P (MAP) Pulse Ox O2 Delivery O2 Flow Rate FiO2 11/11/17 11:00 98.1 74 18 124/68 (86) 94 Room Air 98.1 Labs Laboratory Tests Test 11/11/17 02:04 11/11/17 05:38 11/11/17 06:40 11/11/17 07:53 White Blood Count 7.4 x10^3/uL (4.0-11.0) Red Blood Count 4.59 x10^6/uL (3.50-5.40) Hemoglobin 13.9 g/dL (12.0-15.5) Hematocrit 40.5 % (36.0-47.0) Mean Corpuscular Volume 88 fL (79-100) Mean Corpuscular Hemoglobin 30 pg (25-35) Mean Corpuscular Hemoglobin Concent 34 g/dL (31-37) Red Cell Distribution Width 13.0 % (11.5-14.5) Platelet Count 229 x10^3/uL (140-400) Neutrophils (%) (Auto) 60 % (31-73) Lymphocytes (%) (Auto) 27 % (24-48) Monocytes (%) (Auto) 10 % (0-9) Eosinophils (%) (Auto) 2 % (0-3) Basophils (%) (Auto) 1 % (0-3) Neutrophils # (Auto) 4.4 x10^3uL (1.8-7.7) Lymphocytes # (Auto) 2.0 x10^3/uL (1.0-4.8) Monocytes # (Auto) 0.7 x10^3/uL (0.0-1.1) Eosinophils # (Auto) 0.2 x10^3/uL (0.0-0.7) Basophils # (Auto) 0.1 x10^3/uL (0.0-0.2) Sodium Level 140 mmol/L (136-145) Potassium Level 3.9 mmol/L (3.5-5.1) Chloride Level 104 mmol/L (98-107) Carbon Dioxide Level 26 mmol/L (21-32) Anion Gap 10 (6-14) Blood Urea Nitrogen 15 mg/dL (7-20) Creatinine 0.7 mg/dL (0.6-1.0) Estimated GFR (Cockcroft-Gault) 84.8 BUN/Creatinine Ratio 21 (6-20) Glucose Level 142 mg/dL (70-99) Calcium Level 9.3 mg/dL (8.5-10.1) Magnesium Level 2.1 mg/dL (1.8-2.4) Total Bilirubin 0.2 mg/dL (0.2-1.0) Aspartate Amino Transf (AST/SGOT) 31 U/L (15-37) Alanine Aminotransferase (ALT/SGPT) 41 U/L (14-59) Alkaline Phosphatase 72 U/L (46-116) Troponin I Quantitative < 0.017 ng/mL (0.000-0.055) < 0.017 ng/mL (0.000-0.055) Total Protein 6.9 g/dL (6.4-8.2) Albumin 4.0 g/dL (3.4-5.0) Albumin/Globulin Ratio 1.4 (1.0-1.7) Triglycerides Level 184 mg/dL (0-150) Cholesterol Level 220 mg/dL (0-200) LDL Cholesterol, Calculated 128 mg/dL (0-100) VLDL Cholesterol, Calculated 37 mg/dL (0-40) Non-HDL Cholesterol Calculated 165 mg/dL (0-129) HDL Cholesterol 55 mg/dL (40-60) Cholesterol/HDL Ratio 4.0 Lipase 242 U/L (73-393) Thyroid Stimulating Hormone (TSH) 1.641 uIU/mL (0.358-3.74) Glucose (Fingerstick) 123 mg/dL (70-99) 117 mg/dL (70-99) Test 11/11/17 09:35 Troponin I Quantitative < 0.017 ng/mL (0.000-0.055) Laboratory Tests Test 11/11/17 02:04 11/11/17 05:38 11/11/17 06:40 11/11/17 07:53 White Blood Count 7.4 x10^3/uL (4.0-11.0) Red Blood Count 4.59 x10^6/uL (3.50-5.40) Hemoglobin 13.9 g/dL (12.0-15.5) Hematocrit 40.5 % (36.0-47.0) Mean Corpuscular Volume 88 fL (79-100) Mean Corpuscular Hemoglobin 30 pg (25-35) Mean Corpuscular Hemoglobin Concent 34 g/dL (31-37) Red Cell Distribution Width 13.0 % (11.5-14.5) Platelet Count 229 x10^3/uL (140-400) Neutrophils (%) (Auto) 60 % (31-73) Lymphocytes (%) (Auto) 27 % (24-48) Monocytes (%) (Auto) 10 % (0-9) Eosinophils (%) (Auto) 2 % (0-3) Basophils (%) (Auto) 1 % (0-3) Neutrophils # (Auto) 4.4 x10^3uL (1.8-7.7) Lymphocytes # (Auto) 2.0 x10^3/uL (1.0-4.8) Monocytes # (Auto) 0.7 x10^3/uL (0.0-1.1) Eosinophils # (Auto) 0.2 x10^3/uL (0.0-0.7) Basophils # (Auto) 0.1 x10^3/uL (0.0-0.2) Sodium Level 140 mmol/L (136-145) Potassium Level 3.9 mmol/L (3.5-5.1) Chloride Level 104 mmol/L (98-107) Carbon Dioxide Level 26 mmol/L (21-32) Anion Gap 10 (6-14) Blood Urea Nitrogen 15 mg/dL (7-20) Creatinine 0.7 mg/dL (0.6-1.0) Estimated GFR (Cockcroft-Gault) 84.8 BUN/Creatinine Ratio 21 (6-20) Glucose Level 142 mg/dL (70-99) Calcium Level 9.3 mg/dL (8.5-10.1) Magnesium Level 2.1 mg/dL (1.8-2.4) Total Bilirubin 0.2 mg/dL (0.2-1.0) Aspartate Amino Transf (AST/SGOT) 31 U/L (15-37) Alanine Aminotransferase (ALT/SGPT) 41 U/L (14-59) Alkaline Phosphatase 72 U/L (46-116) Troponin I Quantitative < 0.017 ng/mL (0.000-0.055) < 0.017 ng/mL (0.000-0.055) Total Protein 6.9 g/dL (6.4-8.2) Albumin 4.0 g/dL (3.4-5.0) Albumin/Globulin Ratio 1.4 (1.0-1.7) Triglycerides Level 184 mg/dL (0-150) Cholesterol Level 220 mg/dL (0-200) LDL Cholesterol, Calculated 128 mg/dL (0-100) VLDL Cholesterol, Calculated 37 mg/dL (0-40) Non-HDL Cholesterol Calculated 165 mg/dL (0-129) HDL Cholesterol 55 mg/dL (40-60) Cholesterol/HDL Ratio 4.0 Lipase 242 U/L (73-393) Thyroid Stimulating Hormone (TSH) 1.641 uIU/mL (0.358-3.74) Glucose (Fingerstick) 123 mg/dL (70-99) 117 mg/dL (70-99) Test 11/11/17 09:35 Troponin I Quantitative < 0.017 ng/mL (0.000-0.055) Allergies Allergies Coded Allergies Type Severity Reaction Last Updated Verified Estrogens Allergy Intermediate 11/11/17 Yes Penicillins Allergy Intermediate 11/11/17 Yes Tetracyclines Allergy Intermediate 11/11/17 Yes Disposition/Orders: D/C to Home Patient Instructions d/c planning 38 min ZURDO SOARES MD Nov 11, 2017 15:56
--- NOTE | 2017-11-11 15:59 | DISCH ---
DISCHARGE INSTRUCTIONS Condition on Discharge Condition on Discharge: Stable Activity After Discharge Activity Instructions for Disc: Resume previous activity Lifting Instructions after Dis: No heavy lifting, No pulling or pushing Driving Instructions after Dis: Do not drive today Diet after Discharge Diet after Discharge: Cardiac Contacting the DR. after DC Call your doctor for: If your condition worsens ZURDO SOARES MD Nov 11, 2017 15:59
--- NOTE | 2017-11-11 16:07 | CARD ---
MR#: [id number] Date of Study: 11/11/2017 Ordering Physician: PRECIOUS SMALLWOOD, Referring Physician: OLEG TANG Tech: Luda Frank RDCS APPROVED REPORT EXAM: Two-dimensional and M-mode echocardiogram with Doppler and color Doppler. Other Information Quality : Good INDICATION Chest Pain 2D DIMENSIONS RVDd2.6 (2.9-3.5cm)Left Atrium(2D)3.1 (1.6-4.0cm) IVSd0.8 (0.7-1.1cm)Aortic Root(2D)2.5 (2.0-3.7cm) LVDd4.6 (3.9-5.9cm)LVOT Diameter1.9 (1.8-2.4cm) PWd0.8 (0.7-1.1cm)LVDs2.3 (2.5-4.0cm) FS (%) 30.0 %SV81.5 ml LVEF(%)60.0 (>50%) Aortic Valve AoV Peak Juan.139.3cm/sAoV VTI27.1cm AO Peak GR.7.8mmHgLVOT Peak Juan.115.1cm/s LVOT VTI 24.66cmAO Mean GR.4mmHg LANCE (VMAX)2.57vb4TNW (VTI)2.59cm2 Mitral Valve MV E Ndedwduz03.9cm/sMV DECEL [id number] MV A Awlbvqno68.3cm/sMV BGH97hk E/A Ratio1.0MVA (PHT)3.69cm2 TDI E/Lateral E'8.3E/Medial E'10.8 Tricuspid Valve TR P. Ekwfuvyq337nj/sRAP CVUUKOHU0sgIh TR Peak Gr.89idQoRPHC21hvRl Pulmonary Vein S1 Tfdpdinh49.0cm/sD2 Bltmohhy30.8cm/s LEFT VENTRICLE The left ventricle is normal size. There is normal left ventricular wall thickness. The left ventricu lar systolic function is normal. The Ejection Fraction is 55-60%. There is normal LV segmental wall m otion. RIGHT VENTRICLE The right ventricle is normal size. The right ventricular systolic function is normal. ATRIA The left atrium size is normal. The right atrium size is normal. The interatrial septum is intact wit h no evidence for an atrial septal defect or patent foramen ovale as noted on 2-D or Doppler imaging. AORTIC VALVE The aortic valve is calcified but opens well. Doppler and Color Flow revealed no significant aortic r egurgitation. There is no significant aortic valvular stenosis. MITRAL VALVE The mitral valve is normal in structure and function. There is no evidence of mitral valve prolapse. There is no mitral valve stenosis. Doppler and Color-flow revealed trace mitral regurgitation. TRICUSPID VALVE The tricuspid valve is normal in structure and function. Doppler and Color Flow revealed trace tricus pid regurgitation. The PA pressure was estimated at 23 mmHg. There is no tricuspid valve stenosis. PULMONIC VALVE The pulmonic valve is not well visualized. Doppler and Color Flow revealed no pulmonic valvular regur gitation. There is no pulmonic valvular stenosis. GREAT VESSELS The aortic root is normal in size. The ascending aorta is normal in size. The IVC is normal in size a nd collapses >50% with inspiration. PERICARDIAL EFFUSION There is no evidence of significant pericardial effusion. Critical Notification Critical Value: No <Conclusion> The left ventricular systolic function is normal. The Ejection Fraction is 55-60%. There is normal LV segmental wall motion. Trace mitral regurgitation. Trace tricuspid regurgitation. The PA pressure was estimated at 23 mmHg. There is no evidence of significant pericardial effusion. Signed by : Manish Walker, Electronically Approved : 11/11/2017 16:06:13
[2017-11-11] MEDS ORDERED: CALCIUM CARB/VIT D3 500/200 TABLET. PO SCH (17:00)
[2017-11-11] MEDS ORDERED: CARVEDILOL 12.5 MG TABLET. PO SCH (17:00)
[2017-11-11] MEDS ORDERED: FAMOTIDINE 20 MG TABLET. PO SCH (21:00)
[2017-11-11] MEDS ORDERED: OMEGA-3 FATTY ACIDS/FISH OIL 1,000 MG CAPSULE. PO SCH (21:00)
[2017-11-11] MEDS ORDERED: NON FORMULARY ITEM (Ubidecarenone (Coq-10) 200 MG) PO SCH (21:00)
[2017-11-12] MEDS ORDERED: ASCORBIC ACID 500 MG TABLET PO SCH (09:00)
[2017-11-12] MEDS ORDERED: ASPIRIN CHEWABLE 81 MG TABLET. PO SCH (09:00)
== END 2017-11-11 16:50 | disposition home or self-care (01) ==
LOC: ER 01:50 → INTOOBSV 03:40 → 5 NORTH 03:40
PROVIDERS: ADMIT Internal Medicine; ATTEND Internal Medicine
DX: R07.9 Chest pain, unspecified (principal); I10 Essential (primary) hypertension; K21.9 Gastro-esophageal reflux disease without esophagitis; E78.5 Hyperlipidemia, unspecified; R53.82 Chronic fatigue, unspecified; Z82.49 Family history of ischemic heart disease and other diseases of the circulatory system; M19.90 Unspecified osteoarthritis, unspecified site
CPT/HCPCS: 36415; 71046; 78452; 80053; 80061; 82962; 83690; 83735; 84443; 84484; 85025; 93005; 93017; 93306; 96374; 99285; A9500; G0378; J2785; J3010; 96375; 96376; G0379

== ENCOUNTER → 2018-01-07 | Outpatient (CLI) | payer SELFPAY ==
[~2018-01-07] MED LIST: ALPR0.254 PO; ASCO100020 PO; ASPI-630 PO; CALC-77 PO; CARV12.52 PO; CINN500C2 PO; FLAX10003 PO; OMEG1CAP27 PO; RANI150C PO; RED600CA2 PO; UBID100C26 PO; VITA200C28 PO
--- NOTE | 2018-01-07 17:09 | KCIC ---
CT CALCIUM SCORING dated 01/07/2018 1:30 PM Indication: Dyslipidemia family history of coronary disease.. Technical factors: Computed tomography of the heart was performed with ECG gating, suspended respiration and without the administration of contrast material. Post processing was performed on the 3-D computer workstation using diastolic phase images to measure the amount of coronary vascular calcium. Scoring was aquired using the Agatston Method. Findings:. Coronary arteries: Calcium is absent. Total Agaston calcium score equals 0. Coronary vascular calcium is not detected with this exam. This does not absolutely rule out the presence of atherosclerotic plaque, including unstable plaque, but does imply a very low likelihood of significant luminal obstruction. A negative test may be consistent with a low risk of cardiovascular event in the next 2 to 5 years. Heart size within normal limits. No pericardial effusion. Imaged portions of the mediastinum and pulmonary parenchyma otherwise unremarkable. Mild patchy groundglass density in the left lower lobe, nonspecific. Mild bronchial wall thickening. Conclusions: 1. Normal study, no coronary artery calcium identified. 2. Mild patchy groundglass opacity in the left lower lobe, atelectasis versus mild bronchial inflammatory process. Recommendations: Healthy lifestyle choices including eating appropriately and exercise are encouraged. Additional supporting information concerning the findings and recommendation contained within this report can be found in the consensus statements on coronary vascular calcium published by the [place] [employer] and [employer] 5 Conference (Circulation 1996; 94: 3822-7753; J Am Lena Cardiol 2000; 36: 326-340 and Circulation 2000; 101: 111-116). Electronically signed by: Stanford Hughes MD (01/07/2018 5:05 PM) [facility]
== END | disposition home or self-care (01) ==
LOC: KCIC CT 13:06
PROVIDERS: ATTEND Internal Medicine Cardiovascular Disease
DX: E78.5 Hyperlipidemia, unspecified (principal); Z82.49 Family history of ischemic heart disease and other diseases of the circulatory system
CPT/HCPCS: 75571

== ENCOUNTER → 2018-01-23 | Outpatient (CLI) | payer OTHER ==
[~2018-01-23] MED LIST changes: +CARV12.511 PO; -CARV12.52 PO
--- NOTE | 2018-01-23 13:03 | RAD ---
EXAM: Nuclear gastric emptying scan. HISTORY: Hiatal hernia. Reflux. COMPARISON: None. TECHNIQUE: Serial static images were obtained over the stomach following oral administration of 2.0 mCi of 99m-Tc sulfur colloid. FINDINGS: The stomach empties into the small bowel without evidence of reflux in the area of the esophagus. The estimated time for half emptying of gastric contents, i.e. 'gastric emptying time' is 75 minutes (normal is 66 +/- 22 minutes). There is 60 percent retained tracer activity within the stomach at one hour, 20 percent retained tracer activity within the stomach at 2 hours, 8 percent retained tracer activity within the stomach at 3 hours, and 0 percent retained tracer activity within the stomach at 4 hours. IMPRESSION: Normal gastric emptying scan. Electronically signed by: Yolande Sharma MD (01/23/2018 1:00 PM) [id number]
== END | disposition home or self-care (01) ==
LOC: NM 08:21
PROVIDERS: ATTEND Internal Medicine Gastroenterology
DX: K21.9 Gastro-esophageal reflux disease without esophagitis (principal)
CPT/HCPCS: 78264; A9541